=== PATIENT | female | born 1940 | race Caucasian/White ===

== ENCOUNTER 2018-10-18 12:30 | Outpatient (CLI) | payer OTHER | END 2018-10-18 12:32 | disposition home or self-care (01) | LOC: SONOGRAMA 12:30 | DX: R31.9 Hematuria, unspecified (principal) ==

== ENCOUNTER 2018-10-18 13:16 | Outpatient (CLI) | payer OTHER | END 2018-10-18 13:24 | disposition home or self-care (01) | LOC: LAB 13:16 | DX: N30.00 Acute cystitis without hematuria (principal) ==

== ENCOUNTER 2020-09-08 17:18 | Emergency (ER) | payer OTHER ==
[~2020-09-08] VITALS: Ht 170.2 cm; Wt 86.2 kg
[2020-09-08] MEDS ORDERED: COZAAR50 MG (17:29)
[2020-09-08] MEDS ORDERED: LEXAPRO5 MG (17:29)
[2020-09-08] MEDS ORDERED: NAMENDA5 MG (17:29)
[2020-09-08] MEDS ORDERED: LEVO-T100 MCG (17:30)
[2020-09-08] MEDS ORDERED: ASPIRIN81 MG (17:30)
[2020-09-08] MEDS ORDERED: ACETAMINOPHEN650 M2 PO (20:14)
== END 2020-09-08 20:32 | disposition home or self-care (01) ==
LOC: ER 17:18
DX: B34.9 Viral infection, unspecified (principal); R50.9 Fever, unspecified; Z03.818 Encounter for observation for suspected exposure to other biological agents ruled out

== ENCOUNTER 2020-09-10 08:31 | Outpatient (CLI) | payer OTHER ==
[~2020-09-10 08:31] MED LIST: ACETAMINOPHEN650 M2 PO; ASPIRIN81 MG; COZAAR50 MG; LEVO-T100 MCG; LEXAPRO5 MG; NAMENDA5 MG
== END 2020-09-10 08:47 | disposition home or self-care (01) ==
LOC: TOM 08:31
PROVIDERS: ATTEND Specialist
DX: Q61.02 Congenital multiple renal cysts (principal); R10.84 Generalized abdominal pain

== ENCOUNTER 2020-09-12 12:47 | Emergency (ER) | payer OTHER ==
[~2020-09-12] VITALS: Ht 170.2 cm; Wt 83.5 kg
[2020-09-12] MEDS ORDERED: SIMVASTATIN40 MG PO (13:28)
[2020-09-12] MEDS ORDERED: PROBIOTIC & AC1 EACH PO (18:17)
== END 2020-09-12 18:27 | disposition home or self-care (01) ==
LOC: ER 12:47
DX: K52.89 Other specified noninfective gastroenteritis and colitis (principal)

== ENCOUNTER 2020-10-31 13:56 | Inpatient (IN) | payer OTHER ==
[~2020-10-31] VITALS: Ht 167.6 cm; Wt 83.5 kg
[~2020-10-31 13:56] MED LIST changes: +PROBIOTIC & AC1 EACH PO; +SIMVASTATIN40 MG PO
--- NOTE | 2020-10-31 14:10 | NUR ---
SE RECIBE PACIENTE ALERTA Y ORIENTADA. PACIENTE REFIERE TENR DOLOR ABDOMINAL DESDE LA MANANA. LA MISMA VERBALIZA TENER AMOR HERNIA EN EL LADO OMAR DEL ABDOMEN.
--- NOTE | 2020-10-31 14:44 | NUR ---
PTE EVALUADA POR EL DR BERTHA OJEDAIEN [place]. MS Evonne ARBOLEDA ORIENTA SOBRE EL [place] ORDENADO, LO CUAL REFIERE ENTENDER, CANALIZA Y REALIZA PRUEBAS DE LABORATORIO SHIRA ORDEN MEDICA Y SIGUIENDO MEDIDAS ASEPTICAS.
[2020-11-03] MEDS ORDERED: ARICEPT5 MG PO (13:30)
[2020-11-03] MEDS ORDERED: SIMVASTA PO (13:31)
== END 2020-11-01 12:54 | disposition home or self-care (01) | DRG 395 ==
LOC: ER 13:56 → SURH 15:56
PROVIDERS: ADMIT Specialist; ATTEND Specialist
PROC: BW21ZZZ Computerized Tomography (CT Scan) of Abdomen and Pelvis (ICD-10-PCS; principal; 2020-10-31)
DX: K43.6 Other and unspecified ventral hernia with obstruction, without gangrene (principal); E03.8 Other specified hypothyroidism; G30.8 Other Alzheimer's disease; F02.80 Dementia in other diseases classified elsewhere, unspecified severity, without behavioral disturbance, psychotic disturbance, mood disturbance, and anxiety; I10 Essential (primary) hypertension; Z20.822 Contact with and (suspected) exposure to COVID-19

== ENCOUNTER 2020-11-04 05:41 | Inpatient (IN) | payer OTHER ==
[~2020-11-04 05:41] MED LIST changes: +ARICEPT5 MG PO; +SIMVASTA PO
== END 2020-11-07 09:44 | disposition home or self-care (01) | DRG 355 ==
LOC: CIR.AMB 05:41 → ADM 10:45 → CIR.AMB 10:45 → SURH 13:07
PROVIDERS: ADMIT Specialist; ATTEND Specialist
PROC: 0WUF0JZ Supplement Abdominal Wall with Synthetic Substitute, Open Approach (ICD-10-PCS; principal; 2020-11-04 08:15)
DX: K43.6 Other and unspecified ventral hernia with obstruction, without gangrene (principal); I10 Essential (primary) hypertension; E03.8 Other specified hypothyroidism; G30.9 Alzheimer's disease, unspecified; F02.80 Dementia in other diseases classified elsewhere, unspecified severity, without behavioral disturbance, psychotic disturbance, mood disturbance, and anxiety